=== PATIENT | female | born 1980 | race Caucasian/White ===

== ENCOUNTER → 2020-04-19 11:38 | Outpatient (CLI) | payer BC, SELFPAY ==
[2020-04-19 12:52] LABS: EXAGEN MAILED SPECIMEN
[2020-04-19 15:58] LABS: Absolute Lymphocyte Count 1.42 X10^3/uL (0.83-4.51); Absolute Neutrophil Count 4.2 X10^3/uL (2.0-7.7); Basophil# 0.02 X10^3/uL; Basophil% 0.3 % (0-1); Eosinophil# 0.05 X10^3/uL; Eosinophils% 0.8 % (0-5); Lymphocyte # 1.42 X10^3/ul (4.0); Lymphocyte % 23.1 % (19-41); Mean Corp Hgb Conc 32.5 g/dL (32-36); Mean Corpuscular Hgb 29.4 pg (27.0-32.0); Mean Corpuscular Volume 90.5 fL (81-99); Mean Platelet Vol. 11.8 fl (6.2-12.0); Monocyte# 0.48 X10^3/uL; Monocyte% 7.8 % (0-10); NRBC Flagged by Analyzer 0 % (0-5); Neutrophil # 4.15 X10^3/uL (2.7-7.7); Neutrophil % 67.7 % (47-70); Platelet Count 201 K/mm3 (150-450); RBC Distribution Width CV 13.2 % (11.6-14.6); RBC Distribution Width SD 43.2 fl (35.1-43.9); Red Blood Count 4.42 M/mm3 (4.2-5.4); White Blood Count 6.1 K/mm3 (4.4-11.0)
[2020-04-19 16:25] LABS: ALB/GLOB Ratio 0.8 RATIO (0.9-2.4); AST(SGOT) 15 U/L (15-37); Alanine Aminotransfer ALT/SGPT 28 U/L (13-56); Albumin, Serum 3.6 g/dL (3.2-5.0); Alkaline Phosphatase 48 U/L (45-117); Anion Gap 4 (5-15); BUN 11 mg/dL (7-18); BUN/Creat Ratio 13.2 RATIO (10-20); Calcium,Total 8.5 mg/dL (8.5-10.1); Chloride 104 mmol/L (98-107); Creatinine, Serum 0.83 mg/dL (0.55-1.02); EST Glomerular Filtration Rate 82 mL/min (>60); Est Glom Filt Rate - Afr Amer 99 mL/min (>60); Globulin 4.8 g/dL (2.2-4.2); Glucose 72 mg/dL (74-106); Potassium 3.4 mmol/L (3.5-5.1); Protein, Total 8.4 g/dL (6.4-8.2); Sodium Level 137 mmol/L (136-145)
[2020-04-19 17:08] LABS: Protein, Urine (Random) 11.2 mg/dL (<11.9); Protein:Creat Ratio 79 mg/g CRE (0-200)
[2020-04-19 17:11] LABS: Color, Urine Yellow (Yellow); Glucose, Dipstick Normal (Normal); Ketone-Dipstick 5 mg/dl (Negative); Leukocyte Esterase-Dipstick Negative /ul (Negative); Nitrite-Dipstick Negative (Negative); Occult Blood-Urine Negative /ul (Negative); Protein-Dipstick Negative (Negative); Specific Gravity, Urine 1.015 (1.002-1.030); Urine Bilirubin Dipstick Negative (Negative); Urine Clarity Sl. Cloudy (Clear); Urine Urobilinogen Normal (Normal)
[2020-04-19 23:37] LABS: Hepatitis B Surface Antibody Reactive; Hepatitis B Surface Antigen Non-Reactive (Nonreactive); Hepatitis C Antibody Non-Reactive (Nonreactive)
[2020-04-21 09:16] LABS: Hepatitis B Core AB IgM Negative (Negative)
== END ==
PROVIDERS: PCP Nurse Practitioner Family; Referring Provider Internal Medicine Rheumatology; Visit Provider Internal Medicine Rheumatology
DX: M06.4 Inflammatory polyarthropathy (principal); R76.8 Other specified abnormal immunological findings in serum; M51.36 Other intervertebral disc degeneration, lumbar region; E03.9 Hypothyroidism, unspecified
CPT/HCPCS: 36415; 80053; 81002; 82570; 84156; 85025; 86705; 86706; 86803; 87340

== ENCOUNTER → 2020-05-21 15:52 | Outpatient (CLI) | payer BC, SELFPAY ==
[2020-05-21 18:14] LABS: Basophil# 0.02 X10^3/uL; Basophil% 0.4 % (0-1); Eosinophil# 0.02 X10^3/uL; Eosinophils% 0.4 % (0-5); Hematocrit 39.3 % (37-47); Hemoglobin 12.9 g/dL (12.0-15.0); Lymphocyte % 19.9 % (19-41); Mean Corp Hgb Conc 32.8 g/dL (32-36); Mean Corpuscular Hgb 29.8 pg (27.0-32.0); Mean Corpuscular Volume 90.8 fL (81-99); Mean Platelet Vol. 11.2 fl (6.2-12.0); Monocyte# 0.35 X10^3/uL; Monocyte% 6.3 % (0-10); NRBC Flagged by Analyzer 0 % (0-5); Neutrophil # 4.01 X10^3/uL (2.7-7.7); Neutrophil % 72.6 % (47-70); Platelet Count 210 K/mm3 (150-450); RBC Distribution Width CV 13.4 % (11.6-14.6); RBC Distribution Width SD 43.1 fl (35.1-43.9); Red Blood Count 4.33 M/mm3 (4.2-5.4); White Blood Count 5.5 K/mm3 (4.4-11.0)
[2020-05-21 18:36] LABS: ALB/GLOB Ratio 0.9 RATIO (0.9-2.4); AST(SGOT) 18 U/L (15-37); Alanine Aminotransfer ALT/SGPT 30 U/L (13-56); Albumin, Serum 3.8 g/dL (3.2-5.0); Alkaline Phosphatase 50 U/L (45-117); Anion Gap 4 (5-15); BUN 14 mg/dL (7-18); BUN/Creat Ratio 16.8 RATIO (10-20); Calcium,Total 9.1 mg/dL (8.5-10.1); Chloride 104 mmol/L (98-107); Creatinine, Serum 0.83 mg/dL (0.55-1.02); EST Glomerular Filtration Rate 81 mL/min (>60); Est Glom Filt Rate - Afr Amer 99 mL/min (>60); Globulin 4.4 g/dL (2.2-4.2); Glucose 96 mg/dL (74-106); Potassium 3.8 mmol/L (3.5-5.1); Protein, Total 8.2 g/dL (6.4-8.2); Sodium Level 135 mmol/L (136-145)
== END ==
PROVIDERS: PCP Nurse Practitioner Family; Referring Provider Internal Medicine Rheumatology; Visit Provider Internal Medicine Rheumatology
DX: M05.79 Rheumatoid arthritis with rheumatoid factor of multiple sites without organ or systems involvement (principal); M35.1 Other overlap syndromes; M51.36 Other intervertebral disc degeneration, lumbar region; M21.41 Flat foot [pes planus] (acquired), right foot; E03.9 Hypothyroidism, unspecified; Z79.899 Other long term (current) drug therapy
CPT/HCPCS: 36415; 80053; 85025

== ENCOUNTER → 2020-06-17 10:26 | Outpatient (CLI) | payer BC, SELFPAY ==
[2020-06-17 12:17] LABS: Absolute Lymphocyte Count 1.54 X10^3/uL (0.83-4.51); Absolute Neutrophil Count 3.6 X10^3/uL (2.0-7.7); Basophil# 0.02 X10^3/uL; Basophil% 0.4 % (0-1); Eosinophil# 0.03 X10^3/uL; Eosinophils% 0.5 % (0-5); Hematocrit 40.1 % (37-47); Lymphocyte # 1.54 X10^3/ul (4.0); Lymphocyte % 27.9 % (19-41); Mean Corp Hgb Conc 32.4 g/dL (32-36); Mean Corpuscular Hgb 29.4 pg (27.0-32.0); Mean Corpuscular Volume 90.7 fL (81-99); Mean Platelet Vol. 11.2 fl (6.2-12.0); Monocyte# 0.29 X10^3/uL; Monocyte% 5.3 % (0-10); NRBC Flagged by Analyzer 0 % (0-5); Neutrophil # 3.62 X10^3/uL (2.7-7.7); Neutrophil % 65.7 % (47-70); Platelet Count 194 K/mm3 (150-450); RBC Distribution Width CV 13.5 % (11.6-14.6); RBC Distribution Width SD 44.6 fl (35.1-43.9); Red Blood Count 4.42 M/mm3 (4.2-5.4); White Blood Count 5.5 K/mm3 (4.4-11.0)
[2020-06-17 12:48] LABS: ALB/GLOB Ratio 0.8 RATIO (0.9-2.4); AST(SGOT) 15 U/L (15-37); Alanine Aminotransfer ALT/SGPT 23 U/L (13-56); Albumin, Serum 3.6 g/dL (3.2-5.0); Alkaline Phosphatase 50 U/L (45-117); Anion Gap 4 (5-15); BUN 11 mg/dL (7-18); Calcium,Total 9.2 mg/dL (8.5-10.1); Chloride 106 mmol/L (98-107); Creatinine, Serum 0.91 mg/dL (0.55-1.02); EST Glomerular Filtration Rate 73 mL/min (>60); Est Glom Filt Rate - Afr Amer 89 mL/min (>60); Globulin 4.6 g/dL (2.2-4.2); Glucose 116 mg/dL (74-106); Protein, Total 8.2 g/dL (6.4-8.2); Sodium Level 139 mmol/L (136-145)
== END ==
PROVIDERS: PCP Family Medicine; Referring Provider Internal Medicine Rheumatology; Visit Provider Internal Medicine Rheumatology
DX: M05.79 Rheumatoid arthritis with rheumatoid factor of multiple sites without organ or systems involvement (principal); M35.1 Other overlap syndromes; M51.36 Other intervertebral disc degeneration, lumbar region; M21.41 Flat foot [pes planus] (acquired), right foot; E03.9 Hypothyroidism, unspecified; Z79.899 Other long term (current) drug therapy
CPT/HCPCS: 36415; 80053; 85025

== ENCOUNTER → 2020-09-14 12:14 | Outpatient (CLI) | payer MEDICAID, SELFPAY ==
[2020-09-14 15:34] LABS: Progesterone Level 9.68 ng/mL (See Comment)
[2020-09-14 15:41] LABS: ALB/GLOB Ratio 0.8 RATIO (0.9-2.4); AST(SGOT) 16 U/L (15-37); Alanine Aminotransfer ALT/SGPT 27 U/L (13-56); Albumin, Serum 3.5 g/dL (3.2-5.0); Alkaline Phosphatase 51 U/L (45-117); Anion Gap 5 (5-15); BUN 14 mg/dL (7-18); BUN/Creat Ratio 18.4 RATIO (10-20); Chloride 107 mmol/L (98-107); Creatinine, Serum 0.76 mg/dL (0.55-1.02); EST Glomerular Filtration Rate 90 mL/min (>60); Est Glom Filt Rate - Afr Amer 109 mL/min (>60); Estradiol 175.5 pg/mL; Free T3 2.1 pg/mL (2.18-3.98); Globulin 4.4 g/dL (2.2-4.2); Glucose 82 mg/dL (74-106); Potassium 3.8 mmol/L (3.5-5.1); Protein, Total 7.9 g/dL (6.4-8.2); Sodium Level 139 mmol/L (136-145); Thyroid Stim Hormone (TSH) 3.55 uIU/mL (0.358-3.74)
[2020-09-14 15:43] LABS: Absolute Lymphocyte Count 1.22 X10^3/uL (0.83-4.51); Absolute Neutrophil Count 3.3 X10^3/uL (2.0-7.7); Basophil# 0.03 X10^3/uL; Basophil% 0.6 % (0-1); Eosinophil# 0.04 X10^3/uL; Eosinophils% 0.8 % (0-5); Hematocrit 37.9 % (37-47); Hemoglobin 12.8 g/dL (12.0-15.0); Lymphocyte # 1.22 X10^3/ul (4.0); Lymphocyte % 24.4 % (19-41); Mean Corp Hgb Conc 33.8 g/dL (32-36); Mean Corpuscular Hgb 30.4 pg (27.0-32.0); Mean Platelet Vol. 12.2 fl (6.2-12.0); Monocyte# 0.39 X10^3/uL; Monocyte% 7.8 % (0-10); NRBC Flagged by Analyzer 0 % (0-5); Platelet Count 194 K/mm3 (150-450); RBC Distribution Width CV 12.7 % (11.6-14.6); RBC Distribution Width SD 41.9 fl (35.1-43.9); Red Blood Count 4.21 M/mm3 (4.2-5.4)
== END ==
PROVIDERS: PCP Family Medicine
DX: D50.9 Iron deficiency anemia, unspecified (principal); E03.8 Other specified hypothyroidism; E28.8 Other ovarian dysfunction; M05.79 Rheumatoid arthritis with rheumatoid factor of multiple sites without organ or systems involvement; M35.1 Other overlap syndromes; M51.36 Other intervertebral disc degeneration, lumbar region; M21.41 Flat foot [pes planus] (acquired), right foot; E03.9 Hypothyroidism, unspecified; Z79.899 Other long term (current) drug therapy
CPT/HCPCS: 36415; 80053; 82670; 84144; 84403; 84443; 84481; 85025

== ENCOUNTER 2022-10-25 20:04 | Emergency (ER) | payer MEDICAID, SELFPAY ==
[2022-10-25 20:05] VITALS: BP 138/91; PULSE 101; RESP 16; TEMP 37; O2SAT 99; BMI 37.3
[2022-10-25 20:53] LABS: Absolute Lymphocyte Count 1.66 X10^3/uL (0.83-4.51); Absolute Neutrophil Count 3.1 X10^3/uL (2.0-7.7); Basophil# 0.03 X10^3/uL; Basophil% 0.6 % (0-1); Eosinophil# 0.03 X10^3/uL; Eosinophils% 0.6 % (0-5); Hematocrit 39.3 % (37-47); Hemoglobin 13.5 g/dL (12.0-15.0); Lymphocyte # 1.66 X10^3/ul (0.83-4.51); Lymphocyte % 32.1 % (19-41); Mean Corp Hgb Conc 34.4 g/dL (32-36); Mean Corpuscular Hgb 30.7 pg (27.0-32.0); Mean Corpuscular Volume 89.3 fL (81-99); Monocyte# 0.34 X10^3/uL; Monocyte% 6.6 % (0-10); NRBC Flagged by Analyzer 0 % (0-5); Neutrophil % 59.9 % (47-70); Platelet Count 187 K/mm3 (150-450); RBC Distribution Width CV 12.5 % (11.6-14.6); RBC Distribution Width SD 41.1 fl (35.1-43.9); White Blood Count 5.2 K/mm3 (4.4-11.0)
[2022-10-25 21:01] LABS: Bacteria 0 SEEN /hpf (None Seen); Mucous, Urine 0 SEEN /hpf (<or=2+); White Blood Cells 0 SEEN /hpf (0-5)
[2022-10-25 21:03] LABS: Internal QC Validated? YES +Cl - CLEAR BKGD; Pregnancy, Serum, hCG Quali. NEGATIVE Negative
[2022-10-25 21:06] LABS: Anion Gap 6 (5-15); BUN 19 mg/dL (7-18); BUN/Creat Ratio 21.7 RATIO (10-20); Calcium,Total 9.5 mg/dL (8.5-10.1); Chloride 107 mmol/L (98-107); Creatinine, Serum 0.88 mg/dL (0.55-1.02); EST Glomerular Filtration Rate 76 mL/min (>60); Est Glom Filt Rate - Afr Amer 92 mL/min (>60); Glucose 99 mg/dL (74-106); Potassium 4.1 mmol/L (3.5-5.1); Sodium Level 141 mmol/L (136-145)
--- NOTE | 2022-10-25 21:16 | CT_ITS ---
STUDY: CT ABDOMEN AND PELVIS WITH CONTRAST REASON FOR EXAM: Female, 42 years old. Abdominal pain, right-sided. TECHNIQUE: IV Contrast: IV 100mL [id number] Enteric contrast: None administered. Axial images obtained. Coronal and sagittal reformatted images provided. Individualized dose optimization techniques were used for this CT. COMPARISON: None. FINDINGS: Partially visualized lower chest: Lung bases unremarkable. Liver: No concerning lesions. Gallbladder and biliary tree: No visible gallstones. No pericholecystic inflammation. No biliary ductal dilation. Pancreas: No pancreatic lesions or inflammation. Spleen: Normal size, no splenic lesions. Adrenal glands: No concerning masses. Kidneys and ureters: No hydronephrosis or renal stones. No concerning masses. No ureteral dilation. Bowel: Normal appendix. No obstruction or inflammation of the bowel. Sigmoid colon diverticulosis, no diverticulitis. Urinary bladder: No stones or wall thickening. Reproductive:Evidence of fairly recent section with mild residual prominence of the uterus and a visible incision in the lower uterine segment. Normal ovaries. Vascular: No abdominal aortic aneurysm. No DVT. Patent portal and mesenteric veins. Retroperitoneal and peritoneal spaces: No ascites or free air. No retroperitoneal lesions. Osseous: No acute osseous abnormality. Abdominal and pelvic wall: 3.7 cm in greatest dimension increased density deep in the subcutaneous fat at the midline just beneath the umbilicus within the section incision. Any findings described in the findings sections and not included in the impression are incidental and do not require imaging follow-up. CT/Abdomen/Pelvis W IV Cont ONLY IMPRESSION: No acute findings. Normal appendix. Evidence of fairly recent . 3.7 cm increased density structure deep in the subcutaneous fat of the incision most likely resolving hematoma, less likely prominent scar/granulation tissue. Electronically Signed: Malvin Montes MD at 22:43 EST Reading Location ID and State: [facility] [place] Tel , Service support ,
[2022-10-25 21:17] LABS: Color, Urine Yellow (Yellow); Glucose, Dipstick Normal (Normal); Ketone-Dipstick Negative (Negative); Leukocyte Esterase-Dipstick Negative /ul (Negative); Nitrite-Dipstick Negative (Negative); Occult Blood-Urine 150 /ul (Negative); Protein-Dipstick Negative (Negative); Urine Bilirubin Dipstick Negative (Negative); Urine Clarity Clear (Clear); Urine Urobilinogen Normal (Normal)
[2022-10-25 21:26] LABS: Squamous Epithelial Cells - UA 0-5 SEEN /hpf (5-10)
[2022-10-25 21:27] LABS: Red Blood Cells-Urine 0-5 SEEN /hpf (0-5)
--- NOTE | 2022-10-25 21:28 | ED.VIS.GI ---
HPI <Dr. Saul Hernandez DO - Last Filed: 10/30/22 23:00> HPI - GI History of Present Illness Chief Complaint: Abd Pain Informant: patient Narrative Narrative: Presenting waxing waning pain mid abdomen rates her right side over the past 2 weeks. States sometimes sharp sometimes dull. Has had ovarian cyst and kidney stones in the past does not feel similar. 4 C-sections in the past. No fevers. No vomiting or diarrhea. Daily bowel movements. No urinary symptoms. Denies fever. Prior similar symptoms: No PFSH <Dr. Saul Hernandez DO - Last Filed: 10/30/22 23:00> PFSH Medical History (Updated 10/26/22 @ 01:[address] Kareem Garcia DO) Hypothyroid Kidney calculi Lupus Ovarian cyst Home Medications cetirizine 10 mg tablet (Zyrtec) 10 mg PO BID 10/25/22 [History Last Taken Unknown] hydroxychloroquine 200 mg tablet (Plaquenil) 200 mg PO BID 10/25/22 [History Last Taken Unknown] multivitamin 1 tab PO DAILY 10/25/22 [History Last Taken Unknown] omega-3 fatty acids mg PO BID 10/25/22 [History Last Taken Unknown] progesterone 50 mg/mL intramuscular oil 50 mg DAILY 10/25/22 [History Last Taken Unknown] thyroid (pork) 60 mg tablet ([place] Thyroid) 60 mg PO DAILY 10/25/22 [History Last Taken Unknown] amoxicillin 875 mg-potassium clavulanate 125 mg tablet 1 tab PO BID 10 days #20 tabs 10/26/22 [Rx Last Taken Unknown] tramadol 50 mg tablet 50 mg PO 4X/DAY PRN PRN pain 3 days #12 tabs 10/26/22 [Rx Last Taken Unknown] Allergy/AdvReac Type Severity Reaction Status Date / Time No Known Allergies Allergy Verified 10/25/22 20:08 Social History Smoking Status: Former smoker ROS <Dr. Saul Hernandez DO - Last Filed: 10/30/22 23:00> ROS ED Constitutional Constitutional ED: Denies chills, fever(s) or sweats Eyes Eyes: Denies change in vision ENT ENT ED: Denies dysphagia or sore throat Cardiovascular Cardiovascular: Denies chest pain, leg edema, palpitations or racing heartbeat Respiratory/Chest Respiratory/Chest: Denies cough, dyspnea or dyspnea on exertion Gastrointestinal Gastrointestinal: Reports abdominal pain; Denies diarrhea, nausea or vomiting Genitourinary Genitourinary ED: Denies dysuria, hematuria or urinary frequency Musculoskeletal Musculoskeletal: Denies back pain, extremity pain or neck pain Integumentary Denies rash or wounds Neurologic Neurologic: Denies headache(s), paresthesias or weakness EXAM <Dr. Saul Hernandez, DO - Last Filed: 10/30/22 23:00> Physical Exam Const Vital Signs: 10/25/22 20:05 10/25/22 21:41 Temperature 98.6 F Temperature Source Temporal Pulse Rate 101 H Respiratory Rate 16 16 Blood Pressure 138/91 H Blood Pressure Mean 106 Pulse Ox 99 Oxygen Delivery Method Room Air Positive well nourished and well developed General Appearance ED: well developed and NAD HEENT Reports moist mucous membranes normocephalic and atraumatic Eyes PERRL, EOMs intact bilaterally and conjunctivae normal General Eye ED: Yes normal appearance of both eyes Neck no lymphadenopathy and supple General: Negative for tenderness Chest Wall Chest: Negative for tenderness Resp normal respiratory effort and normal air movement Effort and Inspection: symmetric chest movement; Negative for respiratory distress Cardio regular rate, regular rhythm and no murmurs Peripheral Pulses: pulses 2+ throughout GI normal to inspection, nondistended, normoactive bowel sounds GI Narrative: Tender mid abdomen right lower quadrant there is no guarding or rebound. Negative Rovsing's. No rash. Palpation: Negative for guarding or rebound tenderness present Back/Spine no CVA tenderness and no thoracic nor lumbar tenderness Extremity normal to inspection General Extremety ED: Negative for edema or tenderness General Extremity: Negative for edema Neuro oriented x3 and no sensory deficits noted Sensorium / Orientation: awake and alert Skin no rashes or lesions noted and no wounds <Dr. Kareem Garcia, DO - Last Filed: 10/26/22 01:24> Physical Exam Const Vital Signs: 10/25/22 20:05 10/25/22 21:41 Temperature 98.6 F Temperature Source Temporal Pulse Rate 101 H Respiratory Rate 16 16 Blood Pressure 138/91 H Blood Pressure Mean 106 Pulse Ox 99 Oxygen Delivery Method Room Air MDM <Dr. Saul Hernandez, DO - Last Filed: 10/30/22 23:00> MDM MDM Narrative Medical decision making narrative: interventions / MDM: Differential diagnosis: Pancreatitis, appendicitis, ovarian cyst, colitis Diagnosis considered but do not suspect: N/A My EKG interpretation: N/A Imaging independently reviewed and interpreted by myself: CT abdomen pelvis: Fluid collection anterior part of the uterus, reported from radiology concerns for recent hematoma. External documents reviewed: N/A Test considered but not ordered:N/A ED course: Patient nonsurgical abdomen. Pain mid abdomen rating to the right side. She declined any medications. Abdominal labs are White count 5.2. Your get it. CT scan of contrast notes fluid collection uterus 3.7 cm per radiology question remnants of recent with hematoma. However discussed with the patient her last was 8 years ago. Concern of potential fluid collection with an abscess. She denies any fevers. Will obtain ultrasound for closer evaluation. Reexamination of the patient pain is more suprapubic which she now states that is where it started. She denied any trauma or recent heavy lifting. Re-evaluation: stable Disposition discussed with patient/family/significant other: Patient Case discussed with consulting clinician: N/A Lab Data Labs: Laboratory Results - last 24 hr 10/25/22 10/25/22 10/25/22 20:45 20:45 20:45 WBC 5.2 RBC 4.40 Hgb 13.5 Hct 39.3 MCV 89.3 MCH 30.7 MCHC 34.4 RDW Std Deviation 41.1 RDW Coeff of Felecia 12.5 Plt Count 187 MPV 11.0 Immature Gran % (Auto) 0.200 Neut % (Auto) 59.9 Lymph % (Auto) 32.1 [place] % (Auto) 6.6 Eos % (Auto) 0.6 Baso % (Auto) 0.6 Absolute Neuts (auto) 3.1 Absolute Lymphs (auto) 1.66 Nucleated RBC % 0 Sodium 141 Potassium 4.1 Chloride 107 Carbon Dioxide 28.0 Anion Gap 6 BUN 19 H Creatinine 0.88 Estim Creat Clear Calc 70.30 Est GFR (MDRD) Af Amer 92 Est GFR (MDRD) Non-Af 76 BUN/Creatinine Ratio 21.7 H Glucose 99 Calcium 9.5 Total Bilirubin Direct Bilirubin AST ALT Alkaline Phosphatase Total Protein Albumin Globulin Lipase Serum , Qual NEGATIVE Urine Color Urine Clarity Urine pH Ur Specific [place] Urine Protein Urine Glucose (UA) Urine Ketones Urine Occult Blood Urine Nitrite Urine Bilirubin Urine Urobilinogen Ur Leukocyte Esterase Urine RBC Urine WBC Ur Squamous Epith Cells Urine Bacteria Urine Mucus 10/25/22 10/25/22 20:45 20:53 WBC RBC Hgb Hct MCV MCH MCHC RDW Std Deviation RDW Coeff of [place] Plt Count MPV Immature Gran % (Auto) Neut % (Auto) Lymph % (Auto) [place] % (Auto) Eos % (Auto) Baso % (Auto) Absolute Neuts (auto) Absolute Lymphs (auto) Nucleated RBC % Sodium Potassium Chloride Carbon Dioxide Anion Gap BUN Creatinine Estim Creat Clear Calc Est GFR (MDRD) Af Amer Est GFR (MDRD) Non-Af BUN/Creatinine Ratio Glucose Calcium Total Bilirubin 0.20 Direct Bilirubin 0.11 AST 14 L ALT 18 Alkaline Phosphatase 38 L Total Protein 8.0 Albumin 3.7 Globulin 4.3 H Lipase 188 Serum , Qual Urine Color Yellow Urine Clarity Clear Urine pH 7.0 Ur Specific [place] 1.010 Urine Protein Negative Urine Glucose (UA) Normal Urine Ketones Negative Urine Occult Blood 150 H Urine Nitrite Negative Urine Bilirubin Negative Urine Urobilinogen Normal Ur Leukocyte Esterase Negative Urine RBC 0-5 SEEN Urine WBC 0 SEEN Ur Squamous Epith Cells 0-5 SEEN Urine Bacteria 0 SEEN Urine Mucus 0 SEEN Radiography Diagnostic Testing: Clinical Impression(s) from Imaging Studies Abdomen/Pelvis CT 10/25/22 21:16 IMPRESSION: No acute findings. Normal appendix. Evidence of fairly recent . 3.7 cm increased density structure deep in the subcutaneous fat of the incision most likely resolving hematoma, less likely prominent scar/granulation tissue. Electronically Signed: Malvin Montes MD at 22:43 EST Reading Location ID and State: [address] [place] [address] Tel , Service support , ADDENDUM: 10/26/22 0054 IMPRESSION: undefined Transvaginal US 10/25/22 22:57 IMPRESSION: The cervical canal is distended with complex fluid. This fluid extends cephalad and distends the lower uterine segment endometrium anteriorly toward the scar. This complex fluid most likely represents either blood or pus. Suggest correlation with physical exam and for symptoms of infection/cervicitis. The lesion in the anterior abdominal wall deep to the incision shows shadowing with irregular contour. While this could represents chronic granulation tissue/scarring or sequela of previa hematoma, this amount is unusual this far after surgery. Another possibility is endometriosis within the scar. 2.2 cm myometrial fibroid anterior aspect uterine body. Normal ovaries. Electronically Signed: Malvin Montes MD at 0:41 EST Reading Location ID and State: [facility] / [place] Tel , Service support , <Dr. Kareem Garcia, DO - Last Filed: 10/26/22 01:24> [facility] Lab Data Attestation: I reviewed the patient's lab results. Labs: Laboratory Results - last 24 hr 10/25/22 10/25/22 10/25/22 20:45 20:45 20:45 WBC 5.2 RBC 4.40 Hgb 13.5 Hct 39.3 MCV 89.3 MCH 30.7 MCHC 34.4 RDW Std Deviation 41.1 RDW Coeff of Felecia 12.5 Plt Count 187 MPV 11.0 Immature Gran % (Auto) 0.200 Neut % (Auto) 59.9 Lymph % (Auto) 32.1 [place] % (Auto) 6.6 Eos % (Auto) 0.6 Baso % (Auto) 0.6 Absolute Neuts (auto) 3.1 Absolute Lymphs (auto) 1.66 Nucleated RBC % 0 Sodium 141 Potassium 4.1 Chloride 107 Carbon Dioxide 28.0 Anion Gap 6 BUN 19 H Creatinine 0.88 Estim Creat Clear Calc 70.30 Est GFR (MDRD) Af Amer 92 Est GFR (MDRD) Non-Af 76 BUN/Creatinine Ratio 21.7 H Glucose 99 Calcium 9.5 Total Bilirubin Direct Bilirubin AST ALT Alkaline Phosphatase Total Protein Albumin Globulin Lipase Serum , Qual NEGATIVE Urine Color Urine Clarity Urine pH Ur Specific [place] Urine Protein Urine Glucose (UA) Urine Ketones Urine Occult Blood Urine Nitrite Urine Bilirubin Urine Urobilinogen Ur Leukocyte Esterase Urine RBC Urine WBC Ur Squamous Epith Cells Urine Bacteria Urine Mucus 10/25/22 10/25/22 20:45 20:53 WBC RBC Hgb Hct MCV MCH MCHC RDW Std Deviation RDW Coeff of Felecia Plt Count MPV Immature Gran % (Auto) Neut % (Auto) Lymph % (Auto) [place] % (Auto) Eos % (Auto) Baso % (Auto) Absolute Neuts (auto) Absolute Lymphs (auto) Nucleated RBC % Sodium Potassium Chloride Carbon Dioxide Anion Gap BUN Creatinine Estim Creat Clear Calc Est GFR (MDRD) Af Amer Est GFR (MDRD) Non-Af BUN/Creatinine Ratio Glucose Calcium Total Bilirubin 0.20 Direct Bilirubin 0.11 AST 14 L ALT 18 Alkaline Phosphatase 38 L Total Protein 8.0 Albumin 3.7 Globulin 4.3 H Lipase 188 Serum , Qual Urine Color Yellow Urine Clarity Clear Urine pH 7.0 Ur Specific [place] 1.010 Urine Protein Negative Urine Glucose (UA) Normal Urine Ketones Negative Urine Occult Blood 150 H Urine Nitrite Negative Urine Bilirubin Negative Urine Urobilinogen Normal Ur Leukocyte Esterase Negative Urine RBC 0-5 SEEN Urine WBC 0 SEEN Ur Squamous Epith Cells 0-5 SEEN Urine Bacteria 0 SEEN Urine Mucus 0 SEEN Radiography Diagnostic Testing: Clinical Impression(s) from Imaging Studies Abdomen/Pelvis CT 10/25/22 21:16 IMPRESSION: No acute findings. Normal appendix. Evidence of fairly recent . 3.7 cm increased density structure deep in the subcutaneous fat of the incision most likely resolving hematoma, less likely prominent scar/granulation tissue. Electronically Signed: Malvin Montes MD at 22:43 EST Reading Location ID and State: [address] [place] [address] Tel , Service support , ADDENDUM: 10/26/22 0054 IMPRESSION: undefined Transvaginal US 10/25/22 22:57 IMPRESSION: The cervical canal is distended with complex fluid. This fluid extends cephalad and distends the lower uterine segment endometrium anteriorly toward the scar. This complex fluid most likely represents either blood or pus. Suggest correlation with physical exam and for symptoms of infection/cervicitis. The lesion in the anterior abdominal wall deep to the incision shows shadowing with irregular contour. While this could represents chronic granulation tissue/scarring or sequela of previa hematoma, this amount is unusual this far after surgery. Another possibility is endometriosis within the scar. 2.2 cm myometrial fibroid anterior aspect uterine body. Normal ovaries. Electronically Signed: Malvin Montes MD at 0:41 EST , Treatment and Re-Evaluation Comments:: The patient was signed out to me while awaiting results of her ultrasound. Her ultrasound showed complex fluid with in the endometrial canal causing mild distention and differential includes blood or pus. The patient states that she has had some vaginal bleeding as of recently which is abnormal for her. At this time patient's vitals are stable her labs do not suggest signs of systemic infection and her pain has been relatively controlled with [id number] medications and Toradol. The case was discussed with [employer] on-call. They agree that at this time as vitals and labs are stable and patient is not in intractable pain that she can be covered with antibiotics in case the abnormal fluid collection is infectious in nature and follow-up in the next 1 to 2 days for repeat evaluation and discuss further treatment options. The plan of care was discussed with the patient she is agreeable to it and therefore we discharged at this time Discharge Plan Triage Chief Complaint: Abd Pain ED Provider: Saul Hernandez Dx/Rx/DC Orders Clinical Impression: Nonspecific abdominal pain, Uterine fibroid, Abnormal collection of fluid in uterine cavity Instructions: Abdominal Pain, ED Pelvic Pain, Unknown Cause Prescriptions: New amoxicillin-pot clavulanate 875-125 mg tablet 1 tab PO BID 10 Days Qty: 20 0RF tramadol 50 mg tablet 50 mg PO 4X/DAY PRN PRN (Reason: pain) 3 Days Qty: 12 0RF No Action multivitamin Tablet 1 tab PO DAILY cetirizine [Zyrtec] 10 mg Tablet 10 mg PO BID progesterone [Progesterone Aqueous] 50 mg/mL Oil 50 mg DAILY Rx Instructions: po every day hydroxychloroquine [Plaquenil] 200 mg Tablet 200 mg PO BID Fish Oil Capsule PO BID thyroid (pork) [[facility] Thyroid] 60 mg Tablet 60 mg PO DAILY Primary Care Provider: Mc Bullock Referrals: Sridevi Schulz CNM [Med Staff - [facility]] - Mc Bullock MD [Primary Care Provider] - Activity Restrictions/Additional Instructions: Was concerned that the fluid within your uterus is infectious please take the antibiotic as directed. Also call your [employer] today in order to establish short-term/early follow-up. If you have any further concerns or worsening of symptoms please return to the ER for repeat evaluation Disposition Disposition: Home, Self Care Discharge Date/Time: 10/26/22 02:14
[2022-10-25] MEDS: 0.9% Normal Saline 1,000 ML 1000 ML IV (21:40)
[2022-10-25 21:41] VITALS: RESP 16
[2022-10-25 21:53] LABS: AST(SGOT) 14 U/L (15-37); Alanine Aminotransfer ALT/SGPT 18 U/L (13-56); Albumin, Serum 3.7 g/dL (3.2-5.0); Alkaline Phosphatase 38 U/L (45-117); Bilirubin, Direct 0.11 mg/dL (0.00-0.30); Globulin 4.3 g/dL (2.2-4.2); Lipase 188 U/L (73-393)
--- NOTE | 2022-10-25 22:57 | US_ITS ---
STUDY: ULTRASOUND TRANSVAGINAL CLINICAL: Female, 42 years old. Pelvic pain. CT findings suggest a recent however left was 8 years ago. TECHNIQUE: Transvaginal COMPARISON: CT abdomen pelvis 10/25/2022. FINDINGS: Midline anteverted uterus measures 10.7 x 7.2 x 4.6 cm. 2.2 cm myometrial fibroid in the anterior aspect of the uterine body. Normal endometrial thickness measuring 4 mm. There are no endometrial masses, and there is no fluid in the endometrial cavity. The cervical canal is distended with complex fluid. This fluid extends cephalad and distends the lower uterine segment endometrium anteriorly toward the scar. The lesion in the subcutaneous fat deep to the incision technique the umbilicus in the anterior abdominal wall shows shadowing with irregular contour. Normal right ovary, measuring 4.0 x 2.9 x 2.0 cm. No concerning mass. Appropriate Doppler flow. Normal left ovary, measuring 3.2 x 2.6 x 1.5 cm. No concerning mass. Appropriate Doppler flow. There is no free fluid in the pelvis. US/Transvaginal Non- IMPRESSION: The cervical canal is distended with complex fluid. This fluid extends cephalad and distends the lower uterine segment endometrium anteriorly toward the scar. This complex fluid most likely represents either blood or pus. Suggest correlation with physical exam and for symptoms of infection/cervicitis. The lesion in the anterior abdominal wall deep to the incision shows shadowing with irregular contour. While this could represents chronic granulation tissue/scarring or sequela of previa hematoma, this amount is unusual this far after surgery. Another possibility is endometriosis within the scar. 2.2 cm myometrial fibroid anterior aspect uterine body. Normal ovaries. Electronically Signed: Malvin Montes MD at 0:41 EST Reading Location ID and State: 1950 [place] Tel , Service support ,
[2022-10-26] MEDS: Ketorolac 30 MG/ML Syringe IV (01:24)
[2022-10-26 02:10] VITALS: RESP 16
== END 2022-10-26 02:14 | disposition home or self-care (01) ==
PROVIDERS: Emergency Provider Emergency Medicine; PCP Internal Medicine; Visit Provider Emergency Medicine
DX: R10.9 Unspecified abdominal pain (principal); D25.9 Leiomyoma of uterus, unspecified; E03.9 Hypothyroidism, unspecified; Z87.891 Personal history of nicotine dependence; Z79.899 Other long term (current) drug therapy
CPT/HCPCS: 74177; 76830; 80048; 80076; 81001; 83690; 84703; 85025; 96361; 96374; 99283; J7030; Q9967; A4216